=== PATIENT | female | born 1980 | race Asian ===

== ENCOUNTER 2022-09-20 07:10 | Day surgery (SDC) | payer OTHER ==
[2022-09-19 12:47] LABS: BASOPHILS # (AUTO) 0.1 K/uL (0.0-0.2); EOSINOPHILS # (AUTO) 0.2 K/uL (0.0-0.4); EOSINOPHILS % (AUTO) 3.4 % (0.0-4.0); HEMATOCRIT 43.1 % (36-48); HEMOGLOBIN 14.5 g/dL (12.0-16.0); LYMPHOCYTES % (AUTO) 34.1 % (20.5-51.5); MEAN CORPUSCULAR HEMOGLOBIN 33 pg (27-31); MEAN CORPUSCULAR HGB CONC 34 % (32-36); MEAN CORPUSCULAR VOLUME 99 fL (79.0-98.0); MONOCYTES # (AUTO) 0.3 K/uL (0.0-1.0); MONOCYTES % (AUTO) 5.8 % (1.7-9.3); NEUTROPHILS # (AUTO) 3.3 K/uL (1.8-7.7); NEUTROPHILS % (AUTO) 55.7 % (40.0-70.0); PLATELET COUNT (AUTO) 199 K/uL (130-430); RED BLOOD CELL COUNT(AUTO) 4.38 MIL/uL (4.2-6.2); RED CELL DISTRIBUTION WIDTH 13.2 % (9.0-15.0); WHITE BLOOD COUNT (AUTO) 5.9 K/uL (4.8-10.8)
[2022-09-19 12:51] LABS: BILIRUBIN,URINE NEGATIVE (NEGATIVE); CLARITY/URINE CLEAR (CLEAR); COLOR,URINE YELLOW (YELLOW); GLUCOSE,URINE NEGATIVE (NEGATIVE); KETONES,URINE TRACE (NEGATIVE); LEUKOCYTE ESTERASE ,URINE 1+ (NEGATIVE); NITRITE, URINE NEGATIVE (NEGATIVE); PH,URINE 6.5 (5.0-8.0); PROTEIN URINE NEGATIVE (NEGATIVE)
[2022-09-19 12:52] LABS: BLOOD, URINE TRACE (NEGATIVE)
[2022-09-19 13:02] LABS: BACTERIA,URINE FEW /HPF (None Seen)
[2022-09-19 13:03] LABS: PROTHROMBIN TIME 9.9 SECS (9.5-12.5)
[2022-09-19 13:10] LABS: ALBUMIN 3.8 g/dL (3.4-4.8); CALCIUM 8.1 mg/dL (8.4-11.0); CREATININE 0.92 mg/dL (0.55-1.30); TOTAL BILIRUBIN 0.5 mg/dL (0.0-1.0)
[~2022-09-20] VITALS: Ht 165.1 cm; Wt 71.2 kg
[~2022-09-20 07:10] MED LIST: CEFAZOLIN SOD 2 GM in D5W 50 ML IV ONE
[2022-09-20 07:50] LABS: HCG,QUAL RESULT NEGATIVE (NEGATIVE)
[2022-09-20] MEDS ORDERED: NS IRRIG SOLN 1000 ML IR ONE (09:24)
[2022-09-20] MEDS ORDERED: GLYCOPYRROLATE 0.2 MG/ML VIAL ONE (09:24)
[2022-09-20] MEDS ORDERED: MIDAZOLAM HCL 2 MG/2 ML VIAL (VERSED) ONE (09:24)
[2022-09-20] MEDS ORDERED: METOCLOPRAMIDE HCL 10 MG/2 ML VIAL ONE (09:24)
[2022-09-20] MEDS ORDERED: LR 1,000 ML IV.SOLN IV ONE (09:24)
[2022-09-20] MEDS ORDERED: SEVOFLURANE 15 MIN GAS INH ONE (09:24)
[2022-09-20] MEDS ORDERED: POTASSIUM IODIDE/IODINE 14 ML SOLUTION (LUGOL'S) ONE (09:24)
[2022-09-20] MEDS ORDERED: DEXAMETHASONE SOD PHOSPHATE 4 MG/ML VIAL ONE (09:24)
[2022-09-20] MEDS ORDERED: NORMAL SALINE 10 ML VIAL ONE (09:24)
[2022-09-20] MEDS ORDERED: PROPOFOL 200MG/ 20ML VIAL (DIPRIVAN) IV ONE (09:24)
[2022-09-20] MEDS ORDERED: fentaNYL CITRATE/PF 100 MCG/2 ML AMP ONE (09:24)
[2022-09-20] MEDS ORDERED: ONDANSETRON HCL 4 MG/2 ML VIAL ONE (09:24)
[2022-09-20] MEDS ORDERED: HYDROmorphone 1 MG/ML INJ. CARTRIDGE IVP PRN (10:15)
[2022-09-20] MEDS ORDERED: ONDANSETRON HCL 4 MG/2 ML VIAL IVP PRN ×2 (10:15→10:45)
[2022-09-20] MEDS ORDERED: HYDROcodone/ACETAMIN 5-325 MG TAB (NORCO/ VICODIN) PO PRN ×2 (10:45)
[2022-09-20 13:53] VITALS: BP_SYST 113
== END 2022-09-20 12:25 | disposition home or self-care (01) ==
LOC: SDS 07:10 → STU 07:15 → SDS 12:25
PROVIDERS: ATTEND Obstetrics & Gynecology Gynecology
DX: N72 Inflammatory disease of cervix uteri (principal); R87.613 High grade squamous intraepithelial lesion on cytologic smear of cervix (HGSIL); G43.909 Migraine, unspecified, not intractable, without status migrainosus; Z79.01 Long term (current) use of anticoagulants; Z79.899 Other long term (current) drug therapy
CPT/HCPCS: 87081; 93005; 71046; 80053; 81000; 85025; 85610; 85730; 86886; 86900; 86901; 87086; 36415; 57520; 84703; 88305; 88307; J0690; J1100; J3490; J2765; J3465; J2405; J2704; J3010; J7060; J7120; G0378